=== PATIENT | female | born 1940 | race Caucasian/White ===

== ENCOUNTER → 2016-04-28 | Outpatient (CLI) | payer OTHER, MEDICARE ==
[~2016-04-28] MED LIST: BENADRYL25 M1 PO; BYSTOLIC5 MG PO; CELEBREX100 MG PO; CELEXA10 MG PO; CEROVITE ADVANC1 TAB PO; DIFLUCAN150 MG PO; IMITREX50 MG PO; LASIX40 MG PO; NASACORT16.9 ML NASBOTH; NEURONTIN100 MG PO; NORCO 325-10 MG1 TAB PO; NORCO 325-5 MG1 TAB PO; ORPHENADRINE C100 MG PO; PROLIA60 MG/1 ML SUBCUT; ULTRAM50 MG PO; VITAMIN D31000 UNI1 PO; VITAMIN E400 UNI2 PO; ZANAFLEX2 MG PO; ZOCOR10 MG PO; ZOFRAN ODT4 MG PO
== END | disposition short-term general hospital (02) ==
LOC: CLORTH 09:17
DX: Z47.1 Aftercare following joint replacement surgery (principal); Z96.612 Presence of left artificial shoulder joint

== ENCOUNTER → 2016-05-26 | Outpatient (CLI) | payer OTHER, MEDICARE | END | disposition short-term general hospital (02) | LOC: CLORTH 09:58 | DX: Z47.1 Aftercare following joint replacement surgery (principal); Z96.612 Presence of left artificial shoulder joint ==

== ENCOUNTER → 2016-06-23 | Outpatient (CLI) | payer OTHER, MEDICARE | END | disposition short-term general hospital (02) | LOC: CLORTH 09:52 | DX: Z47.1 Aftercare following joint replacement surgery (principal); Z96.612 Presence of left artificial shoulder joint ==

== ENCOUNTER → 2016-07-07 | Outpatient (CLI) | payer OTHER, MEDICARE | END | disposition short-term general hospital (02) | LOC: CLORTH 07:40 | DX: Z47.1 Aftercare following joint replacement surgery (principal); S42.232S 3-part fracture of surgical neck of left humerus, sequela; Z96.612 Presence of left artificial shoulder joint ==

== ENCOUNTER → 2016-07-30 | Outpatient (CLI) | payer MEDICARE, OTHER | END | disposition short-term general hospital (02) | LOC: CLPAIN 08:13 | DX: M54.16 Radiculopathy, lumbar region (principal); M54.17 Radiculopathy, lumbosacral region; M41.9 Scoliosis, unspecified; M81.0 Age-related osteoporosis without current pathological fracture; M19.90 Unspecified osteoarthritis, unspecified site; M25.551 Pain in right hip ==

== ENCOUNTER → 2016-08-02 | Outpatient (CLI) | payer MEDICARE, OTHER | END | disposition short-term general hospital (02) | LOC: CLONCO 11:10 | DX: D50.9 Iron deficiency anemia, unspecified (principal) ==

== ENCOUNTER → 2016-08-04 | Outpatient (CLI) | payer OTHER, MEDICARE | END | disposition short-term general hospital (02) | LOC: CLORTH 10:35 | DX: Z47.1 Aftercare following joint replacement surgery (principal); Z96.612 Presence of left artificial shoulder joint ==